=== PATIENT | female | born 1945 ===

== ENCOUNTER 2025-06-04 10:00 | Outpatient (RCR) | payer MEDICARE, SELFPAY ==
--- NOTE | 2025-04-30 10:02 | OPREHPOC ---
Outpatient Therapy Plan of Care This is a Multidisciplinary Plan of Care that may contain components documented by all disciplines (PT, OT, and ST.) PT Problem 1 PT Problem #1 Knowledge Deficit PT Goal 1 Goal / Goal Update 1* independent with HEP 2* correct body mechanics and posture with exercises Target Visit 10 PT Problem 2 PT Problem #2 Pain PT Goal 1 Goal / Goal Update 1* pt report pain rating of 6/10 at worst 2* radicular pain L LE to knee at worst 3* radicular pain R LE to mid thigh at worst 4* with sleeping, awaken 1x/night due to pain Target Visit 10 PT Problem 3 PT Problem #3 Impaired Strength PT Goal 1 Goal / Goal Update increase strength of trunk and hips to 4/5 to improve stability to spine Target Visit 10 PT Problem 4 PT Problem #4 Impaired Functional Mobility PT Goal 1 Goal / Goal Update 1* sit/stand 5 reps with 1 UE 2* 5 reps sit/stand time of 22 seconds 3* 2 minute walking test distance of 250' 4* no rest break required during 2 minute walking test Target Visit 10
--- NOTE | 2025-04-30 10:03 | PTOPEVAL1 ---
Assessment and note entered by Naz Rowe PT Evaluation Information Assessment Status Evaluation ICD-10 Condition Codes (PT) Pain in low back M54.50 Onset 2022 Subjective Information started with pain management dr in 2022; have had ~3 injections in my back and they helped, last one did not last as long; have had PT in the past for her chronic back pain; dr recommended her to have back surgery in 1991- she did not want surgery, pain eased with exercises and then had intermittent times of back pain; then in 2022- pain is constant now; when getting into car last month, L leg gave out; she did not fall, was sitting on the carseat; saw neurologist and had MRI- referral to [address] about surgery, saw one and upcoming appointment with other one. activity: live alone, is able to do her home and self care tasks independently, but have to rest about every 10 minutes with standing and sit down alot with chopping food; sometimes use a cane when going out and if feel bad; use the motorized scooter for shopping; Reported Pain Level Pain Score Self Report Additional Pain Score Comments pain range in the past week: 0-9/10; bilateral LE , hips: R lateral thigh to above knee/ L to lateral mid calf at worst increase pain: standing 10 minutes; walking time 1 -2 minutes, then looking for a chair decrease pain: tylenol, celebrex, pregabalin- new script, take only at night, makes her loopy with sleeping: awaken from pain 2-3x/night Assessment PT Clinical Summary Marjorie has the diagnosis of back pain. She has chronic back pain, radicular into both LE's and is under the care of pain management, neurology and surgeon consult for back surgery. Back Index rating of 62% limitation in activity level. Sitting, standing, walking and sleeping are limited due to pain. She lives alone and is independent with her self and light home tasks. She uses a cane and motorized cart in the stores. With the evaluation: she has weakness over bilateral LEs and trunk; 5 reps sit/stand time of 30 seconds and 2 minute walking distance of 190' with 1 sitting break due to hip pain; pain is increased with supine R hip IR and standing trunk flexion. Skilled PT services are indicated for modalities to decrease pain; therapeutic exercises in water and on land to increase strength and education for HEP, posture and body mechanics, pain management techniques. Plan of Care Interventions Aquatic Therapy,Electrical Stimulation,Hot Pack/ Cold Pack,Manual Therapy,Mechanical Traction,Neuro Re-education,Patient/Caregiver Education, Therapeutic Activities,Therapeutic Exercise, Ultrasound,Other Other Interventions taping PT Services Indicated Yes Treatment Frequency and 1-2x/wk for 10 visits Duration These treatments will address the objective and functional deficits as defined above. The patient will be advanced safely and appropriately in order for the patient to progress towards his/her prior level of function. Additional exercises will be introduced and as well as a comprehensive home exercise program upon discharge, if needed, ?to ensure carryover of functional gains achieved in the clinic. This treatment plan has been reviewed and agreement upon by the patient.
--- NOTE | 2025-06-04 11:01 | OPREHPOC ---
Outpatient Therapy Plan of Care This is a Multidisciplinary Plan of Care that may contain components documented by all disciplines (PT, OT, and ST.) PT Problem 1 PT Problem #1 Knowledge Deficit PT Goal 1 Goal / Goal Update 1* independent with HEP 2* correct body mechanics and posture with exercises 06-04-25 d/c goals met Target Visit 10 Progress Met PT Problem 2 PT Problem #2 Pain PT Goal 1 Goal / Goal Update 1* pt report pain rating of 6/10 at worst 2* radicular pain L LE to knee at worst 3* radicular pain R LE to mid thigh at worst 4* with sleeping, awaken 1x/night due to pain 06-04-25 d/c goals 2,3 met #1 is 8/10; #4 is 2x/night Target Visit 10 Progress Partially Met PT Problem 3 PT Problem #3 Impaired Strength PT Goal 1 Goal / Goal Update increase strength of trunk and hips to 4/5 to improve stability to spine 06-04-25 d/c goal not met Target Visit 10 Progress Not Met PT Problem 4 PT Problem #4 Impaired Functional Mobility PT Goal 1 Goal / Goal Update 1* sit/stand 5 reps with 1 UE 2* 5 reps sit/stand time of 22 seconds 3* 2 minute walking test distance of 250' 4* no rest break required during 2 minute walking test 06-04-25 d/c goals met Target Visit 10 Progress Met
--- NOTE | 2025-06-04 11:01 | PTOPDC ---
Assessment and note entered by Naz Rowe, PT Assessment Status Discharge ICD-10 Condition Codes (PT) Pain in low back M54.50 Onset 2022 Subjective Information really like the water exercises; when over do it with the water exercises, feel it the next day; am more careful with how I move and sit; have been doing my exercises at home- really like the stretching on my elbows; have the cane in my car and use with longer distances when going places; want to continue therapy, but water only, do NOT want to do land exercises, they hurt too much; from this assessment and activity I will be in bed the rest of the day with more pain; do not want to come here for any more therapy, if I have to do land. Reported Pain Level Pain Score Self Report Additional Pain Score Comments pain range in the past week 0-8/10; no pain into L leg/ R LE intermittent to mid lateral thigh pain moves around-- sometimes R leg, L leg, bilateral hip joints better since had a back injection last week; report with sleeping awaken 2x/night due to pain; increase pain: overdoing things; walking tolerance 10 minutes decrease pain: sit, rest, stretching, tylenol, ice Assessment PT Clinical Summary Marjorie has received a total of 9 PT-- land and aquatic therapy sessions. Compared to the initial evaluation: pain from 0-9 /10 to 0-8/10; decreased radicular pain R LE to lateral thigh and no pain into L LE; self assessment with back index rating from 62 to 54% limitation in activity level; mobility improved: 5 reps sit/stand from 30 seconds with both UE to 22 seconds without using UEs; 2 minute walking test distance from 190' with pain 7/10 to 290' with pain increase to 8/10; continues to have pain with supine R hip IR motion; education for HEP and body mechanics/posture. The goals were partially met. Recommend continue PT treatment with 1 land and 1 water per week. Pt refused this, she wants all water exercises only. Discussed with her the need to progress her activity, strength and can do pain modalities on land. She states that land hurts and she does not want to do that. And after today's reassessment activities will be hurting and in bed the rest of the day. Discussed with her that she should join a fitness center for aquatic exercises as a method for fitness activity. Discharge PT services per pt request. Plan of Care PT Services Indicated No
== END 2025-06-04 14:06 | disposition home or self-care (01) ==
LOC: ANHPT 10:00
DX: M54.50 Low back pain, unspecified (principal)
CPT/HCPCS: 97110; 97113; 97140; 97161; 97530

== ENCOUNTER 2025-07-06 15:29 | Outpatient (CLI) | payer MEDICARE, SELFPAY ==
--- NOTE | ~2025-07-06 | XR_ITS ---
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 Comparison: None Findings: Grade 1 anterolisthesis of L3 on L4 and L4 on L5, no fracture is identified.Levoconvex scoliosis. Severe loss of disc height throughout, no subluxation flexion and extension. Soft tissues unremarkable Impression: No acute abnormality. Reviewed, dictated and finalized at location P. Impression: No acute abnormality.
== END 2025-07-06 15:30 | disposition home or self-care (01) ==
LOC: MICIMG 15:30
PROVIDERS: PCP Neurological Surgery; Visit Provider Neurological Surgery
DX: M51.369 Other intervertebral disc degeneration, lumbar region without mention of lumbar back pain or lower extremity pain (principal); Z98.1 Arthrodesis status
CPT/HCPCS: 72110